=== PATIENT | female | born 1935 | race Caucasian/White ===

== ENCOUNTER 2016-12-27 13:11 | Inpatient (IN) | payer OTHER, BC ==
[2016-12-27] VITALS (19 sets, daily range): BP systolic 82–146; BP diastolic 35–119
[~2016-12-27] VITALS: Ht 165.1 cm; Wt 63.7 kg
--- NOTE | ~2016-12-27 | HC ---
[facility] [place] [address] CONSULTATION Name: HOLGER ARAIZA Room #: 428-P [facility] IN M.R.#: [id number] Admission: 12/27/16 Attend Phys: Romeo Drake MD Discharge: 01/05/17 Date of : 37 Report #: [id number] THIS REPORT FOR: //name// CC: Kurt Drake MD DATE OF SERVICE: 12/27/2016 DATE OF SERVICE: 12/27/2016. REFERRING PROVIDER: Dr. Romeo Drake. REASON FOR CONSULTATION: Hypoxemia and sepsis. CHIEF COMPLAINT: Altered mental status. HISTORY OF PRESENT ILLNESS: Our group was asked to see the patient in consultation while hospitalized at [facility] in the ICU, patient is having some dilemma, unable to give any further history. History taken from review of records, discussion with healthcare providers an 81-year-old woman with a history of respiratory failure, had recent tracheostomy removal and was brought to the Emergency Department for tachycardia, had adenosine and subsequently cardioversion for what appeared to be supraventricular tachycardia or atrial fibrillation because of hypotension. Urinalysis that suggested patient may be septic from urinary source. CT abdomen and pelvis revealed what appeared to be a right UPJ stone as well as possible right lower lobe pneumonia. ALLERGIES: Include PENICILLIN, SULFA, DOXYCYCLINE. PAST MEDICAL HISTORY: 1. History of respiratory therapy prior tracheostomy. 2. Hypertension. 3. Gastroesophageal reflux disease. 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 SOCIAL HISTORY: Unobtainable due to neurologic status. FAMILY HISTORY: Unobtainable due to neurologic status. REVIEW OF SYSTEMS: Unobtainable due to current neurologic status. The patient does note abdominal pain, significant. PHYSICAL EXAMINATION: VITAL SIGNS: Temperature 37.3, pulse 140 and regular, respiratory rate 30, blood pressure 116/43. [facility] [address] [place] [address] CONSULTATION Name: HOLGER ARAIZA Room #: 428-P [facility] IN [facility]#: [id number] Admission: 12/27/16 Attend Phys: Romeo Drake MD Discharge: 01/05/17 Date of : 37 Report #: [id number] GENERAL: This is a thin, cachectic, elderly woman, appears to be uncomfortable. ENT: Clear oropharynx. NECK: Supple, no lymphadenopathy. LUNGS: Diminished, particularly in the bases, right base crackles. No wheezes noted. CARDIOVASCULAR: Heart was tachycardic and regular. No murmurs noted. ABDOMEN: Distended with diminished bowel sounds and diffuse tenderness on exam. EXTREMITIES: Warm with 2+ pulses. No significant edema. LABORATORY DATA: White blood cell count 22,000, hemoglobin 13, hematocrit 37, platelet count of 80. Sodium is 138, potassium 4.5, chloride 103, bicarbonate 23, BUN 61, creatinine 2.2, glucose 88, a chest x-ray revealed relatively clear lung rodriguez. IMPRESSION: 1. Severe sepsis, likely due to abdominal source, probably a urinary tract infection. 2. Nephrolithiasis. 3. Acute renal insufficiency. 4. Acute hypoxemic respiratory failure, likely chronic. 5. Recent respiratory failure requiring tracheostomy, now removed. 6. Thrombocytopenia. 7. Supraventricular tachycardia/possible atrial fibrillation. SUGGESTIONS: 1. Urology consultation. 2. Continue ICU care with sepsis protocol. 3. Follow up chest radiograph. 4. Additional antibiotics per Infectious Disease service. Additional recommendations to follow. Thank you for requesting our suggestions. <ELECTRONICALLY SIGNED> By: William Benson MD 01/17/17 1453 10 1212 William Benson MD /nt
--- NOTE | ~2016-12-27 | S ---
[facility] [place] [address] SURGICAL PATH RPT PROCEDURE Name: HOLGER ARAIZA Room #: 240-P ADM IN M.R.#: [id number] Admission: 12/27/16 Date of : 37 Discharge: Report #: [id number] Path Case #: [id number] PATHOLOGY REPORT COLLECTION DATE: 12/29/2016 RECEIVED DATE: 12/29/2016 SUBMITTING PHYS: Dr. Dani Lima OTHER PHYS: Dr. Romeo Edmonds SPECIMEN(S) RECEIVED: A.Peripheral smear * * * * * * * * * * * * FINAL DIAGNOSIS: Peripheral blood smear: - Mild leukocytosis/neutrophilia with mild left shift, mild to moderate normocytic anemia and severe thrombocytopenia. (See comment). COMMENT: Overall the peripheral blood has mild leukocytosis/neutrophilia with a mild left shift, mild to moderate normocytic anemia and severe thrombocytopenia. The etiology of the findings is unclear based entirely on slide review. Potential causes of leukocytosis include infections, drug reactions and primary bone marrow disorders. It is likely a reactive condition to the patient's underlying medical condition. Potential causes of normocytic anemia include anemia of chronic disease, treated and/or compensated vitamin and mineral deficiencies, acute blood loss and dilatational. Potential causes of thrombocytopenia include immune and non-immune platelet destruction, drug and/or toxic exposures, dilutional and primary bone marrow disorders. Correlation with clinical history and additional laboratory data is recommended. PATHOLOGIST: Fiona Douglas M.D. REPORT ELECTRONICALLY SIGNED BY: Fiona Douglas M.D. DATE/TIME: 12/29/2016 22:17 * * * * * * * * * * * * MICROSCOPIC DESCRIPTION: CBC Data (12/28/16): WBC 22,700 /uL, RBC 3.14, hemoglobin 9.8 g/dL, hematocrit 29.4%, MCV 93.8 fL, MCH 3.2 pg, MCHC 33.2 g/dL, RDW 15.5%. Platelet count 28,000 /uL. Manual white blood cell differential: segs 68%, bands, 25%, lymphs 1%, monos 1%, metas 3%, and myelos 2%. [address] [address] SURGICAL PATH RPT PROCEDURE Name: HOLGER ARAIZA Room #: [address] [place] [address] IN ..#: [id number] Admission: 12/27/16 Date of : 37 Discharge: Report #: [id number] Path Case #: [id number] Peripheral Blood Smear: Cytomorphological examination of the Dickson's stained peripheral blood smear confirms the provided data. Red blood cells show mild to moderate normocytic anemia with mild anisopoikilocytosis. No significant poikilocytosis is identified. No schistocytes or microspherocytes are seen. White blood cells are mildly increased in number. They are predominantly segmented neutrophils and are without significant dyspoiesis. There is a mild left shift with rare myelocytes and metamyelocytes noted on scanning. No blasts or Gerson rods are seen. Rare lymphocytes are predominantly small, round, and mature appearing with condensed chromatin and scant cytoplasm with admixed large granular lymphocytes. On scanning, no markedly atypical lymphoid cells are seen. Monocytes are mature. Platelets are markedly decreased in number and mainly normal in morphology with rare larger platelets noted. CLINICAL HISTORY: 81-year-old woman with leukocytosis, anemia and thrombocytopenia. Morphologic review of the peripheral blood smear is requested by the patient's physician. INITIAL CPT CODE(S): A; [place] Professional services performed by [employer] at [facility] [address], [place] [address] Technical services performed by [employer] at [address] [place] [address], [address], [place] [address]. [facility] [address] [place] [address] PHONE: [phone] DIRECTOR: Wilbert Davis M.D. * * * END OF REPORT * * *
--- NOTE | ~2016-12-27 | HC ---
[facility] [place] [address] CONSULTATION Name: OHLGER ARAIZA Room #: 240-P ADM IN M.R.#: [id number] Admission: 12/27/16 Attend Phys: Romeo Drake MD Discharge: Date of : 36 Report #: [id number] THIS REPORT FOR: //name// CC: Kurt Benson MD REASON FOR CONSULTATION: Thrombocytopenia. HISTORY OF PRESENT ILLNESS: The patient is an 81-year-old female with history of chronic respiratory failure and tracheostomy who was at an outside facility was brought in because of mental status changes. On admission here, her platelets were 80,000. They were then 59, 40, and this morning 28. During the same time, her coags were unremarkable. Initially, her labs also included a BUN of 61 and a creatinine of 2.2. Liver functions are good, total bilirubin 0.6. ALT 25, albumin 2.1. Coags were normal with an INR of 1.2, APTT slightly up at 38.7, fibrinogen elevated at 442.5. White count initially 22.9, earlier last night 22.8, now supposedly 22.7, hemoglobin 12.5 on admission and after hydration 9.8, MCV 92.4 on admission, RDW at 15.5 currently, differential as noted had neutrophilia and also on today's morning lab, there is also thought to be a few metamyelocytes and myelocytes and nucleated red blood cells and a few large platelets, procalcitonin had been quite elevated at 103.3, heparin antibody is pending. UA did show protein, many wbc's and also 30 bacteria per high power field. Note, there appears to be gram-negative rods in both the blood and the urine, if I understand those correctly. Patient is thought to have a UTI causing her difficulties. The patient underwent a cystoscopy and attempted right stent placement and does have a stone in place, now has a right nephrostomy tube, which is percutaneously placed, has also been on pressor. PAST HISTORY: From the chart is notable for the recent kidney stone, also history of respiratory failure with the trach, hypertension, esophageal reflux disease, history of Guillain-[place]. SMOKING AND ALCOHOL HISTORY: Unchanged. SOCIAL HISTORY: Unobtainable, patient seems to nod the head that she may have been from the [place], but not clear. RADIOLOGIC STUDIES: This admit include a CT of the abdomen and pelvis, which did not reveal any unusual masses, did show the stone, no bleeding. Portable chest x-ray does show persistent right medial infiltrate or mass with follow up suggested. [facility] [address] [place] [address] CONSULTATION Name: GEORGIFAYHOLGER A Room #: 240-P ADM IN M.R.#: [id number] Admission: 12/27/16 Attend Phys: Romeo Drake MD Discharge: Date of : 36 Report #: [id number] CURRENT MEDICATIONS: Include hydrocodone p.r.n.; IV fluids; propofol; meropenem 500 mg q. 8; pressors, which I believe according to the nurse have now been held. The patient had been on vancomycin. PHYSICAL EXAMINATION: GENERAL: The patient is height is 5 feet 5 inches, which is 165.1 cm; weight 123 pounds or 56.1 kilograms. Blood pressure currently 111/60, O2 sat 98% on FiO2 of 30% on the vent I believe, respirations 18, pulse 88, and temperature 97.5. HEENT: Face is symmetrical. No obvious bleeding or dry blood on the nares or the oral mucosa or her IV or ventilatory tube. LYMPHATICS: No enlarged lymph nodes in the supraclavicular, cervical, axillary region. ABDOMEN: Does not appear to be tender. No definite masses. Bowel sounds decreased. EXTREMITIES: Without clubbing, cyanosis. There may be some edema. ASSESSMENT AND PLAN: 1. Thrombocytopenia, most likely due to overwhelming sepsis, would expect improvement, would transfuse if she believes or platelets go below 20,000. We will also check iron, B12, folate levels and ask for outside labs. We will also ask for peripheral smear, likely suspect the metamyelocytes or myelocytes are reactive in nature. 2. Gram-negative rods, sepsis, now off pressors. 3. Continue antibiotics per others. 4. Respiratory failure, ventilatory management. 5. Tachycardia, medicines per others. 6. Anemia. Most likely there is severe sepsis, additional fluid. We will follow. 7. Protein-calorie malnutrition, nutrition supplements as needed. We will follow with you. <ELECTRONICALLY SIGNED> By: Dani Lima MD 12/30/16 0625 0819 220 Dani Lima MD /nt
--- NOTE | ~2016-12-27 | O ---
[facility] [place] [address] [place] [address] OPERATIVE REPORT Name: HOLGER ARAIZA Room #: 237-P [facility] IN .R.#: [id number] Admission: 12/27/16 Attend Phys: Romeo Drake MD Discharge: Date of : 36 Report #: [id number] THIS REPORT FOR: //name// CC: Kurt Drake DATE OF SERVICE: 12/27/2016 PREOPERATIVE DIAGNOSIS: Right hydronephrosis with a 4 mm ureteropelvic junction stone and sepsis. POSTOPERATIVE DIAGNOSIS: Right hydronephrosis with a 4 mm ureteropelvic junction stone and sepsis. PROCEDURES PERFORMED: 1. Cystoscopy. 2. Right retrograde pyelogram. 3. Attempted right ureteral stent placement. ESTIMATED BLOOD LOSS: 0 mL. COMPLICATIONS: None. ANESTHESIA: General. 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 There was tortuosity to the ureter. Wire could not be placed past the stone. Multiple attempts were unsuccessful with 2 different types of wires, both a curved and straight wire were used. INDICATIONS FOR PROCEDURE: The patient is an 81-year-old female with acute onset of respiratory distress, back pain and was admitted to the ICU with sepsis. A CT scan revealed a 4 mm stone and hydronephrosis with stranding around the kidney. Due to her acute illness, she has elected to go the above named procedure. DESCRIPTION OF PROCEDURE: The patient was taken back to the operating room on 12/27/2016 after informed consent was obtained. All risks, benefits, and alternatives were explained. A signed consent released on the chart. She also had consent from her durable power of senior trial attorney. She was placed in a dorsal lithotomy position after being induced with anesthesia. She was prepped and draped in sterile fashion. Using a rigid 21-Uruguayan cystoscope, cystoscopy was performed. The bladder showed severe trabeculation and erythematous mucosa throughout. The right ureteral orifice was cannulated with a 5 Uruguayan open-ended access catheter. Retrograde pyelogram revealed a tortuous ureter and a malrotated kidney with hydronephrosis. Contrast was entering the kidney. [facility] [address] [place] [address] OPERATIVE REPORT Name: HOLGER ARAIZA Room #: 237-P [facility] IN ..#: [id number] Admission: 12/27/16 Attend Phys: Romeo Drake MD Discharge: Date of : 36 Report #: [id number] Multiple attempts with a wire to pass into the renal pelvis were unsuccessful. I attempted to move the retrograde catheter up to the level of the obstruction and see if I could maneuver the wire past the stone. This was also unsuccessful and resulted in extravasation of contrast with subsequent retrograde pyelogram. At this point, I elected to abort the procedure due to risk of ureteral injury and inability to place a wire past the stone. The Dodson catheter was placed into the bladder. She was taken to the recovery room, ventilated and in critical condition. DISPOSITION: The patient will have an interventional radiology consultation for attempting a right percutaneous nephrostomy tube placement. By: [phone] Melchor Edmonds MD /margaret
--- NOTE | ~2016-12-27 | EKG ---
[address] [place] [employer] [address] ELECTROCARDIOGRAM REPORT Name: HOLGER ARAIZA Room #: 237-[facility] IN M.R.#: [id number] Admission: 12/27/16 Attend Phys: Romeo Drake MD Discharge: Date of : 36 Report #: [id number] THIS REPORT FOR: //name// [facility] Test Date: 2016-12-27 Test Time: 17:46:07 Pat Name: HOLGER ARAIZA Department: Room: [facility] Gender: F Pet Caregiver: LAURA : 1935 Requested By: Marko Cool Order Number: [id number] MD: David Chang Measurements Intervals [place] Rate: 134 P: [place]: QRS: -19 QRSD: 167 T: 59 QT: 307 QTc: 459 Interpretive Statements Baseline artifact Sinus tachycardia Baseline wander in lead(s) V5 No previous ECG available for comparison Electronically Signed On 12-28-2016 8:54:13 CDT by David Chang [email or web address] <ELECTRONICALLY SIGNED> By: David Chang MD, [facility] 12/28/16 0854 1746 45 David Chang MD, FACC /EPI
--- NOTE | ~2016-12-27 | 2DMMODE ---
[facility] [place] [address] 2 D/M-MODE ECHOCARDIOGRAM Name: JOSE GHOLGER Gu Room #: 428-P [facility] IN [facility]#: [id number] Admission: 12/27/16 Attend Phys: Romeo Drake MD Discharge: Date of : 37 Date of Service: 01/03/17 1108 Report #: [id number] THIS REPORT FOR: //name// APPROVED REPORT Study performed: 01/03/2017 10:00:53 EXAM: Comprehensive 2D, Doppler, and color-flow Echocardiogram Patient Location: Bedside Room #: 428 Blood Pressure: 121/51 mmHg HR: 95 bpm Other Information Study Quality: Technically Limited Indications Pulmonary Hypertension Sepsis 2D Dimensions RVDd: 25.79 mm IVC: 16.00 mm Volumes Left Atrial Volume (Systole) Single Plane 4CH: 30.38 mL Single Plane 2CH: 33.35 mL LA ESV Index: 22.00 mL/m2 Aortic Valve AoV Peak Néstor.: 1.48 m/s AO Peak Gr.: 8.75 mmHg LVOT Max P.54 mmHg LVOT Max V: 1.37 m/s Mitral Valve E/A Ratio: 0.8 MV Decel. Time: 263.24 ms MV E Max Néstor.: 1.01 m/s MV A Néstor.: 1.25 m/s MV PHT: 76.34 ms IVRT: 96.89 ms [facility] [address] [place] [address] 2 D/M-MODE ECHOCARDIOGRAM Name: HOLGER ARAIZA Room #: 428-P [facility] IN .R.#: [id number] Admission: 12/27/16 Attend Phys: Romeo Drake MD Discharge: Date of : 37 Date of Service: 01/03/17 1108 Report #: [id number] Pulmonary Vein P Vein S: 87.5 m/s P Vein A: 32.38 m/s P Vein D: 68.4 m/s P Vein A Dur.: 86.5 msec Tricuspid Valve TR Peak Néstor.: 3.14 m/s RAP Estimate: 5.00 mmHg TR Peak Gr.: 39.33 mmHg Left Ventricle The left ventricle is normal size. There is normal LV segmental wall motion. There is normal left ventricular wall thickness. Left ventricular systolic function is normal. LVEF is >55%. Grade I - abnormal relaxation pattern. Right Ventricle The right ventricle is normal size. There is normal right ventricular wall thickness. The right ventricular systolic function is normal. Atria The left atrium size is normal. The right atrium size is normal. Aortic Valve Aortic valve is not well visualized. No aortic regurgitation is present. There is no aortic valvular vegetation. There is no aortic valvular stenosis. Mitral Valve The mitral valve is normal in structure. Trace mitral regurgitation. There is no evidence of mitral valve vegetations. No evidence of mitral valve stenosis. There is no evidence of mitral valve prolapse. Tricuspid Valve The tricuspid valve is normal in structure. There is no tricuspid valve stenosis. Mild tricuspid regurgitation. There is no tricuspid valve vegetations. Pulmonic Valve The pulmonary valve is normal in structure. There is no pulmonic valvular stenosis. The pulmonic valve is not well visualized. There is no pulmonic valve vegetations. Great Vessels The aortic root appears normal in size. [facility] [place] [place] [address] 2 D/M-MODE ECHOCARDIOGRAM Name: HOLGER ARAIZA Room #: 428-P [facility] IN M.R.#: [id number] Admission: 12/27/16 Attend Phys: Romeo Drake MD Discharge: Date of : 37 Date of Service: 01/03/171107 Report #: [id number] <Conclusion> The left ventricle is normal size. LVEF is >55%. Aortic valve is not well visualized. No aortic regurgitation is present. There is no aortic valvular stenosis. The mitral valve is normal in structure. Trace mitral regurgitation. The tricuspid valve is normal in structure. Mild tricuspid regurgitation. The pulmonary valve is normal in structure. <ELECTRONICALLY SIGNED> By: Howard Molina MD 01/03/17 1108 1108 1108 Howard Molina MD /INF
--- NOTE | ~2016-12-27 | HC ---
[facility] [place] [address] CONSULTATION Name: HOLGER ARAIZA Room #: 240-P [facility] IN M.R.#: [id number] Admission: 12/27/16 Attend Phys: Romeo Drake MD Discharge: Date of : 36 Report #: [id number] THIS REPORT FOR: //name// CC: Kurt Drake REASON FOR CONSULTATION: I was asked to evaluate concerning right pyelonephritis and septic shock. HISTORY OF PRESENT ILLNESS: The patient is an 81-year-old senior care resident with a history of respiratory failure, has had a previous trach, which has been removed. She has a PEG tube. She was hospitalized on 12/27/2016, with tachycardia and shortness of breath. The patient was confused. In the emergency room, she was hypotensive, her tachycardia did not convert with adenosine. She was cardioverted. It was noted that she had positive UA for wbc's and bacteria. White count was 22,000. She was transferred to the intensive care unit, given IV fluids, but was still in shock and Levophed was started. I ordered a CAT scan of her abdomen and pelvis, which showed a right ureteral obstruction due to a stone. She was taken to surgery, but was unable to pass a ureteral stent. She now has a percutaneous nephrostomy tube in place. Blood cultures are growing Gram-negative bacilli, urine culture, Gram-negative bacilli. ALLERGIES: DOXYCYCLINE, PENICILLIN, and SULFA. MEDICATIONS: As noted on her OCT. She was started on vancomycin and meropenem following her admission. PAST MEDICAL HISTORY: Respiratory failure, previous tracheostomy, now with a decannulated small fistulous tract still present. Hypertension, gastroesophageal reflux, and Guillain-[place] syndrome. FAMILY HISTORY: Noncontributory. SOCIAL HISTORY: Nonsmoker and senior care resident. REVIEW OF SYSTEMS: There has been no other cardiac issues. No GI complaints. She does have a PEG tube. PHYSICAL EXAMINATION: VITAL SIGNS: Currently afebrile, blood pressure 94/53, now off Levophed drip, she is on FIO2 of 50%. She was sedated. EXTREMITIES: Right upper extremity PICC with some bloody drainage on the dressing. Right nephrostomy tube in place with bloody urine. LUNGS: Clear anteriorly. HEART: Regular. ABDOMEN: Soft and appeared diffusely tender, no rebound or guarding identified. [facility] [address] [place] [address] CONSULTATION Name: HOLGER ARAIZA Room #: 240-P [facility] IN .R.#: [id number] Admission: 12/27/16 Attend Phys: Romeo Drake MD Discharge: Date of : 36 Report #: [id number] No appreciable masses. LABORATORY STUDIES: Sodium 141, potassium 4.2, bicarb of 16, creatinine 1.8 down from 2.2 yesterday, alkaline phosphatase 182, ALT 25, albumin of 2.1. Lactate yesterday was 3.6. INR 1.2. Hemoglobin 10.2, white count 2.8, down from 22.9 yesterday, platelet count 40,000 down from 80,000 yesterday, she has 31% bands, 7% metamyelocyte, procalcitonin 106. Urinalysis, many wbc's, many bacteria. ABG on 50% FiO2, pO2 of 216, pCO2 of 31, pH 7.3, lactate 3.1. Blood and urine cultures, Gram-negative bacilli. Chest x-ray, atelectasis in the right lower lobe. CT scan of the abdomen and pelvis with right ureteral stone and obstruction. IMPRESSION: An 81-year-old senior care resident with right pyelonephritis, complicating ureteral obstruction from the stone. Status post nephrostomy tube placement. She has septic shock, cytopenias with profound left shift, DIC, acute renal failure, respiratory failure, recommend continuing a Gram-negative coverage adjusted for renal failure. Full support of her multisystem failure. Follow platelet count closely. If bleeding becomes an issue, she will require transfusion. <ELECTRONICALLY SIGNED> By: Mendel Chilel MD 12/29/16 0923 0834 58 Mendel Chilel MD /nt
--- NOTE | ~2016-12-27 | EKG ---
[place] [address] [facility] [place] [address] ELECTROCARDIOGRAM REPORT Name: HOLGER ARAIZA Room #: 237- ADM IN M.R.#: [id number] Admission: 12/27/16 Attend Phys: Romeo Drake MD Discharge: Date of : 37 Report #: [id number] THIS REPORT FOR: //name// [facility] ED Test Date: 2016-12-27 Test Time: 13:18:49 Pat Name: HOLGER ARAIZA Department: Room: [facility] Gender: F Popcorn Attendant: ALLYSON : 1935 Requested By: Marko Cool Order Number: [id number] MD: David Chang Measurements Intervals [place] Rate: 162 P: 70 MT: 107 QRS: -89 QRSD: 81 T: 56 QT: 261 QTc: 429 Interpretive Statements Sinus tachycardia LAD, consider left anterior fascicular block Low voltage, extremity leads RSR' in V1 or V2, right VCD No previous ECG available for comparison Electronically Signed On 12-28-2016 8:50:13 CDT by David Chang [email or web address] <ELECTRONICALLY SIGNED> By: David Chang MD, [facility] 12/28/16 0850 1318 1318 David Chang MD, [facility] /EPI
[2016-12-27 13:32] LABS: HEMATOCRIT 37.4 % (37.0-47.0); HEMOGLOBIN 12.5 gm/dL (12.0-15.0); MCH 30.8 pg (26.0-34.0); MCHC 33.4 g/dL (28.0-37.0); MCV 92.4 fL (80.0-100.0); RBC 4.05 mil/uL (4.20-5.00); RDW 14.5 % (10.5-14.5); WBC 22.9 thou/uL (4.0-11.0)
[2016-12-27 13:34] LABS: MANUAL DIFF YES; PLATELET COUNT 80 thou/uL (150-400)
[2016-12-27 13:39] LABS: ANION GAP 12 mmol/L (7-16); BUN 61 mg/dL (7-18); CALCIUM 8.7 mg/dL (8.5-10.1); CHLORIDE 103 mmol/L (98-107); CO2 23 mmol/L (21-32); CREATININE 2.2 mg/dL (0.6-1.0); GLUCOSE 88 mg/dL (74-106); POTASSIUM 4.5 mmol/L (3.5-5.1); SODIUM 138 mmol/L (136-145)
[2016-12-27 13:46] LABS: ALBUMIN 2.1 g/dL (3.4-5.0); ALKALINE PHOSPHATASE 182 U/L (46-116); SGOT 31 U/L (15-37); SGPT 25 U/L (30-65); TOTAL BILIRUBIN 0.6 mg/dL (<0.1-1.0); TOTAL PROTEIN 5.8 g/dL (6.4-8.2); TROPONIN-I < 0.04 ng/mL (<0.04-0.07)
[2016-12-27 14:38] LABS: ABG SAMPLE TYPE ARTERIAL; BE(vivo) -3.9 mmol/L (-2 to +3); HCO3 18.7 mmol/L (22.0-26.0); LACTATE 3.11 mmol/L (0.5-2.0); O2(CT) 16.3 mL/dL (15.0-23.0); O2Hb 96.1 % (92.0-98.0); PCO2 27.1 mmHg (35.0-45.0); PO2 96.3 mmHg (80.0-100.0); pH 7.456 (7.360-7.450); sO2 97.8 % (92.0-98.0); tCO2 19.5 mmol/L (24.0-30.0)
[2016-12-27 14:39] LABS: STICK SITE L.RADIAL
[2016-12-27 14:42] LABS: ABG COMMENT NO COMPLICATIONS
[2016-12-27 15:06] LABS: ABSOLUTE NEUTROPHILS 20.6 thou/uL (1.4-8.2); ANISOCYTOSIS 1+; METAMYELOCYTES 8 %; POLYCHROMASIA OCCASIONAL; TOTAL CELL COUNT 100
[2016-12-27 15:08] LABS: URINE BILIRUBIN NEGATIVE (Negative); URINE BLOOD 1+ (Negative); URINE COLOR YELLOW; URINE GLUCOSE-RANDOM* NEGATIVE (Negative); URINE KETONES NEGATIVE (Negative); URINE LEUKOCYTES-REFLEX 3+ (Negative); URINE PROTEIN (DIPSTICK) 2+ (Negative); URINE SPECIFIC GRAVITY 1.025 (1.003-1.035); URINE UROBILINOGEN 0.2 E.U./dl (0.2-1.0)
[2016-12-27 15:16] LABS: CASTS None Seen /LPF (None Seen); SQUAMOUS 4-10 Moderate /LPF (0-3); URINE RBC 3-10 Few /HPF (0-2); URINE WBC-REFLEX >25 Many /HPF (0-5)
[2016-12-27 15:17] LABS: AMORPHOUS URATES Many /LPF (None Seen)
[2016-12-27 19:20] LABS: ABG SAMPLE TYPE VENOUS; BE(vivo) -4.1 mmol/L (-2 to +3); HCO3 20.2 mmol/L (22.0-26.0); O2(CT) 11.1 mL/dL (15.0-23.0); O2Hb VENOUS 67.5 (65.0-85.0); PCO2 VENOUS 34.1 mmHg (41.0-51.0); PO2 VENOUS 36.4 mmHg (35.0-45.0); sO2 VENOUS 69.7 % (65.0-85.0); tCO2 21.2 mmol/L (24.0-30.0)
[2016-12-27 19:21] LABS: LACTATE 3.69 mmol/L (0.5-2.0); STICK SITE LINE
[2016-12-27 19:25] LABS: APTT 38.7 Seconds (24.5-32.8); FIBRINOGEN 442.5 mg/dL (210-360); INR 1.2; PROTIME 12.2 Seconds (9.3-11.4)
[2016-12-27] MEDS ORDERED: ASPIR 8181 M1 PO (20:05)
[2016-12-27] MEDS ORDERED: ATIVAN0.5 MG PO (20:06)
[2016-12-27] MEDS ORDERED: REPLESTA50000 UNIT PO (20:07)
[2016-12-27] MEDS ORDERED: BISACODYL SUPP10 MG RECTAL (20:08)
[2016-12-27] MEDS ORDERED: PEPCID20 MG PO (20:08)
[2016-12-27] MEDS ORDERED: DUONEB 2.5-0.5 M3 ML INH (20:09)
[2016-12-27] MEDS ORDERED: LEXAPRO5 MG PO (20:09)
[2016-12-27] MEDS ORDERED: MAGNESIUM100 MG PO (20:10)
[2016-12-27] MEDS ORDERED: MIRALAX17 GM PO (20:10)
[2016-12-27] MEDS ORDERED: TRAZODONE HCL50 MG PO (20:11)
[2016-12-27] MEDS ORDERED: NORCO 5-325 TA1 EACH PO (20:11)
[2016-12-27 21:07] LABS: ABG SAMPLE TYPE ARTERIAL; BE(vivo) -4.1 mmol/L (-2 to +3); HCO3 19.9 mmol/L (22.0-26.0); O2(CT) 10.5 mL/dL (15.0-23.0); O2Hb VENOUS 70.6 (65.0-85.0); PCO2 VENOUS 32.6 mmHg (41.0-51.0); sO2 VENOUS 73.1 % (65.0-85.0); tCO2 20.9 mmol/L (24.0-30.0)
[2016-12-27 21:08] LABS: LACTATE 3.68 mmol/L (0.5-2.0); STICK SITE LINE
[2016-12-27 22:31] LABS: ABG SAMPLE TYPE ARTERIAL; BE(vivo) -4.9 mmol/L (-2 to +3); HCO3 19.3 mmol/L (22.0-26.0); O2(CT) 10.4 mL/dL (15.0-23.0); O2Hb VENOUS 69.4 (65.0-85.0); PCO2 VENOUS 32.7 mmHg (41.0-51.0); PO2 VENOUS 37.4 mmHg (35.0-45.0); sO2 VENOUS 71.3 % (65.0-85.0); tCO2 20.3 mmol/L (24.0-30.0)
[2016-12-27 22:32] LABS: LACTATE 4.45 mmol/L (0.5-2.0); STICK SITE LINE
[2016-12-27 23:57] LABS: ABG SAMPLE TYPE ARTERIAL; BE(vivo) -7.7 mmol/L (-2 to +3); HCO3 16.6 mmol/L (22.0-26.0); LACTATE 4.33 mmol/L (0.5-2.0); O2(CT) 14.9 mL/dL (15.0-23.0); O2Hb 96.2 % (92.0-98.0); PCO2 29.8 mmHg (35.0-45.0); PO2 105.5 mmHg (80.0-100.0); TIDAL VOLUME 450 ml; pH 7.363 (7.360-7.450); sO2 97.7 % (92.0-98.0); tCO2 17.5 mmol/L (24.0-30.0)
[2016-12-28] VITALS (47 sets, daily range): BP systolic 64–112; BP diastolic 40–78
[2016-12-28 02:37] LABS: CALCIUM 7.5 mg/dL (8.5-10.1); POTASSIUM 4.1 mmol/L (3.5-5.1)
[2016-12-28 03:14] LABS: METAMYELOCYTES 7 %; NUCLEATED RBCS 1 /100WBC; TOTAL CELL COUNT 100
[2016-12-28 03:15] LABS: MANUAL DIFF YES
[2016-12-28 03:17] LABS: HEMATOCRIT 31.2 % (37.0-47.0); HEMOGLOBIN 10.2 gm/dL (12.0-15.0); MCV 96.3 fL (80.0-100.0); RBC 3.24 mil/uL (4.20-5.00); WBC 2.8 thou/uL (4.0-11.0)
[2016-12-28 03:18] LABS: MCH 31.5 pg (26.0-34.0); MCHC 32.7 % (28.0-37.0); PLATELET COUNT 40 thou/uL (150-400); RDW 15.6 % (10.5-14.5)
[2016-12-28 03:21] LABS: ABSOLUTE NEUTROPHILS 2.4 thou/uL (1.4-8.2)
[2016-12-28 06:35] LABS: CALCIUM 7.2 mg/dL (8.5-10.1); CREATININE 1.8 mg/dL (0.6-1.0); POTASSIUM 4.2 mmol/L (3.5-5.1)
[2016-12-28 06:49] LABS: ABG SAMPLE TYPE ARTERIAL; BE(vivo) -9.3 mmol/L (-2 to +3); HCO3 15.7 mmol/L (22.0-26.0); LACTATE 3.17 mmol/L (0.5-2.0); O2(CT) 15.4 mL/dL (15.0-23.0); O2Hb 97.9 % (92.0-98.0); PCO2 31.4 mmHg (35.0-45.0); PO2 216.7 mmHg (80.0-100.0); TIDAL VOLUME 450 ml; pH 7.318 (7.360-7.450); sO2 99.4 % (92.0-98.0); tCO2 16.7 mmol/L (24.0-30.0)
[2016-12-28 15:31] LABS: RDW 15.5 % (10.5-14.5)
[2016-12-28 15:32] LABS: HEMATOCRIT 29.4 % (37.0-47.0); HEMOGLOBIN 9.8 gm/dL (12.0-15.0); MCH 31.2 pg (26.0-34.0); MCHC 33.2 g/dL (28.0-37.0); MCV 93.8 fL (80.0-100.0); RBC 3.14 mil/uL (4.20-5.00)
[2016-12-28 15:35] LABS: MANUAL DIFF YES
[2016-12-28 15:37] LABS: WBC 22.7 thou/uL (4.0-11.0)
[2016-12-28 15:38] LABS: PLATELET COUNT 28 thou/uL (150-400)
[2016-12-28 16:06] LABS: ABSOLUTE NEUTROPHILS 21.1 thou/uL (1.4-8.2); METAMYELOCYTES 3 %; MYELOCYTES 2 %; PLATELET ESTIMATE MARKEDLY DECREASED; TOTAL CELL COUNT 100
[2016-12-28 16:07] LABS: LARGE PLATELETS FEW
[2016-12-29] VITALS (12 sets, daily range): BP systolic 98–135; BP diastolic 42–64
[2016-12-29 08:57] LABS: HEMATOCRIT 30.3 % (37.0-47.0); MCH 31.1 pg (26.0-34.0); MCHC 33.1 g/dL (28.0-37.0); MCV 94.2 fL (80.0-100.0); RBC 3.22 mil/uL (4.20-5.00); RDW 15.4 % (10.5-14.5); WBC 18.1 thou/uL (4.0-11.0)
[2016-12-29 09:05] LABS: % SATURATION 15 % (20-39); IRON 22 ug/dL (50-170); TIBC 143 ug/dL (250-450); UIBC 121 ug/dL
[2016-12-29 09:07] LABS: CALCIUM 8.3 mg/dL (8.5-10.1); CREATININE 0.9 mg/dL (0.6-1.0); MAGNESIUM 1.4 mg/dL (1.8-2.4); POTASSIUM 3.3 mmol/L (3.5-5.1)
[2016-12-29 10:13] LABS: FOLIC ACID 13.2 ng/mL (8.6-58.9)
[2016-12-29 15:27] LABS: HEMOGLOBIN 10.2 gm/dL (12.0-15.0); MCH 30.9 pg (26.0-34.0); MCHC 32.9 g/dL (28.0-37.0); RBC 3.3 mil/uL (4.20-5.00); RDW 15.5 % (10.5-14.5)
[2016-12-29 21:02] LABS: ABG SAMPLE TYPE ARTERIAL; BE(vivo) -6.8 mmol/L (-2 to +3); HCO3 17.7 mmol/L (22.0-26.0); LACTATE 2.05 mmol/L (0.5-2.0); O2(CT) 15.5 mL/dL (15.0-23.0); O2Hb 97.4 % (92.0-98.0); PCO2 32.3 mmHg (35.0-45.0); PO2 134.9 mmHg (80.0-100.0); pH 7.357 (7.360-7.450); sO2 98.6 % (92.0-98.0); tCO2 18.7 mmol/L (24.0-30.0)
[2016-12-29 21:47] LABS: Pressure Support 8 cm H20; STICK SITE R.RADIAL
[2016-12-30] VITALS (53 sets, daily range): BP systolic 78–186; BP diastolic 48–166
[2016-12-30 00:08] LABS: MAGNESIUM 1.8 mg/dL (1.8-2.4); POTASSIUM 4.2 mmol/L (3.5-5.1)
[2016-12-30 04:12] LABS: ABG SAMPLE TYPE ARTERIAL; BE(vivo) -4.6 mmol/L (-2 to +3); HCO3 19.9 mmol/L (22.0-26.0); O2(CT) 16.3 mL/dL (15.0-23.0); O2Hb 96.9 % (92.0-98.0); PCO2 34.9 mmHg (35.0-45.0); PO2 114.2 mmHg (80.0-100.0); pH 7.374 (7.360-7.450); sO2 98.1 % (92.0-98.0)
[2016-12-30 04:13] LABS: STICK SITE L.BRACHIAL
[2016-12-30 05:18] LABS: HEMOGLOBIN 9.7 gm/dL (12.0-15.0); WBC 15.5 thou/uL (4.0-11.0)
[2016-12-30 05:21] LABS: HEMATOCRIT 29.6 % (37.0-47.0); MCH 30.9 pg (26.0-34.0); MCHC 32.8 g/dL (28.0-37.0); MCV 94.3 fL (80.0-100.0); RBC 3.14 mil/uL (4.20-5.00); RDW 15.6 % (10.5-14.5)
[2016-12-30 05:26] LABS: CALCIUM 7.7 mg/dL (8.5-10.1); CREATININE 0.6 mg/dL (0.6-1.0); MAGNESIUM 1.7 mg/dL (1.8-2.4)
[2016-12-30 16:00] LABS: ABG SAMPLE TYPE ARTERIAL; BE(vivo) -7.6 mmol/L (-2 to +3); HCO3 16.5 mmol/L (22.0-26.0); LACTATE 2.53 mmol/L (0.5-2.0); O2(CT) 15.6 mL/dL (15.0-23.0); O2Hb 97.2 % (92.0-98.0); PCO2 29.1 mmHg (35.0-45.0); PO2 138.4 mmHg (80.0-100.0); pH 7.371 (7.360-7.450); sO2 98.7 % (92.0-98.0); tCO2 17.4 mmol/L (24.0-30.0)
[2016-12-30 16:21] LABS: TIDAL VOLUME 450 ml
[2016-12-31] VITALS (14 sets, daily range): BP systolic 108–181; BP diastolic 62–154
[2016-12-31 05:50] LABS: HEMATOCRIT 31.4 % (37.0-47.0); HEMOGLOBIN 10.7 gm/dL (12.0-15.0); MCH 31.5 pg (26.0-34.0); MCHC 34.1 g/dL (28.0-37.0); MCV 92.5 fL (80.0-100.0); RBC 3.39 mil/uL (4.20-5.00); RDW 15.5 % (10.5-14.5); WBC 21.9 thou/uL (4.0-11.0)
[2016-12-31 05:59] LABS: CALCIUM 7.7 mg/dL (8.5-10.1); CREATININE 0.6 mg/dL (0.6-1.0); MAGNESIUM 1.4 mg/dL (1.8-2.4); POTASSIUM 3.8 mmol/L (3.5-5.1)
[2017-01-01 05:00] VITALS: BP 136/78
[2017-01-01 05:49] LABS: HEMATOCRIT 28.4 % (37.0-47.0); HEMOGLOBIN 9.6 gm/dL (12.0-15.0); MCH 31.3 pg (26.0-34.0); MCHC 33.9 g/dL (28.0-37.0); MCV 92.2 fL (80.0-100.0); RBC 3.08 mil/uL (4.20-5.00); RDW 15.1 % (10.5-14.5); WBC 23.7 thou/uL (4.0-11.0)
[2017-01-01 06:12] LABS: CALCIUM 7.8 mg/dL (8.5-10.1); CREATININE 0.5 mg/dL (0.6-1.0); MAGNESIUM 1.6 mg/dL (1.8-2.4); POTASSIUM 3.5 mmol/L (3.5-5.1)
[2017-01-01 08:04] VITALS: BP 143/62
[2017-01-01 16:35] VITALS: BP 141/53
[2017-01-01 20:00] VITALS: BP 105/63
[2017-01-02 04:30] VITALS: BP 128/59
[2017-01-02 05:14] LABS: HEMATOCRIT 24.9 % (37.0-47.0); HEMOGLOBIN 8.3 gm/dL (12.0-15.0); MCH 30.7 pg (26.0-34.0); MCHC 33.3 g/dL (28.0-37.0); MCV 92.3 fL (80.0-100.0); RBC 2.69 mil/uL (4.20-5.00); WBC 18.6 thou/uL (4.0-11.0)
[2017-01-02 05:30] LABS: CALCIUM 7.4 mg/dL (8.5-10.1); CREATININE 0.5 mg/dL (0.6-1.0); MAGNESIUM 1.5 mg/dL (1.8-2.4); POTASSIUM 3.5 mmol/L (3.5-5.1)
[2017-01-02 08:21] VITALS: BP 136/65
[2017-01-02 17:56] VITALS: BP 110/50
[2017-01-02 20:00] VITALS: BP 122/38
[2017-01-03 04:00] VITALS: BP 109/52
[2017-01-03 08:19] VITALS: BP 121/51
[2017-01-03 10:52] LABS: HEMATOCRIT 29.8 % (37.0-47.0); HEMOGLOBIN 10.1 gm/dL (12.0-15.0); MCH 30.7 pg (26.0-34.0); MCV 90.4 fL (80.0-100.0); RBC 3.3 mil/uL (4.20-5.00); WBC 18.6 thou/uL (4.0-11.0)
[2017-01-03 11:05] LABS: CALCIUM 7.5 mg/dL (8.5-10.1); CREATININE 0.5 mg/dL (0.6-1.0); POTASSIUM 3.3 mmol/L (3.5-5.1)
[2017-01-03 15:37] VITALS: BP 126/61
[2017-01-03 20:00] VITALS: BP 120/49
[2017-01-04 04:30] VITALS: BP 118/46
[2017-01-04 05:43] LABS: MCH 30.6 pg (26.0-34.0); MCHC 33.1 g/dL (28.0-37.0); MCV 92.5 fL (80.0-100.0); RBC 2.59 mil/uL (4.20-5.00); RDW 14.8 % (10.5-14.5)
[2017-01-04 05:50] LABS: HEMOGLOBIN 7.9 gm/dL (12.0-15.0)
[2017-01-04 05:59] LABS: CALCIUM 7.4 mg/dL (8.5-10.1); CREATININE 0.5 mg/dL (0.6-1.0); MAGNESIUM 1.8 mg/dL (1.8-2.4); POTASSIUM 3.3 mmol/L (3.5-5.1)
[2017-01-04 07:25] VITALS: BP 124/52
[2017-01-04 15:23] VITALS: BP 124/56
[2017-01-04 22:00] VITALS: BP 126/68
[2017-01-05 04:00] VITALS: BP 117/57
[2017-01-05 05:51] LABS: HEMATOCRIT 24.2 % (37.0-47.0); HEMOGLOBIN 7.9 gm/dL (12.0-15.0); MCH 30.4 pg (26.0-34.0); MCHC 32.8 g/dL (28.0-37.0); MCV 92.8 fL (80.0-100.0); RBC 2.61 mil/uL (4.20-5.00); RDW 14.8 % (10.5-14.5)
[2017-01-05 06:08] LABS: CALCIUM 7.8 mg/dL (8.5-10.1); CREATININE 0.4 mg/dL (0.6-1.0); MAGNESIUM 1.6 mg/dL (1.8-2.4); POTASSIUM 4.2 mmol/L (3.5-5.1)
[2017-01-05 07:06] VITALS: BP 125/69
[2017-01-05] MEDS ORDERED: CEFDINIR300 MG PO (12:15)
== END 2017-01-05 14:02 | DRG 871 ==
LOC: ER 13:11 → ICU 15:29 → EROBS 15:29 → ICU 16:54 → 4E 12-31 11:17
PROVIDERS: Hospitalist; Internal Medicine; Internal Medicine Hematology & Oncology; Internal Medicine Pulmonary Disease; Nurse Practitioner Acute Care; Physician Assistant; Radiology Vascular & Interventional Radiology
PROC: BT1D1ZZ Fluoroscopy of Right Kidney, Ureter and Bladder using Low Osmolar Contrast (ICD-10-PCS; principal; 2016-12-27)
PROC: 0T9030Z Drainage of Right Kidney with Drainage Device, Percutaneous Approach (ICD-10-PCS; 2016-12-28)
PROC: 5A1945Z Respiratory Ventilation, 24-96 Consecutive Hours (ICD-10-PCS; 2016-12-28)
PROC: 30233N1 Transfusion of Nonautologous Red Blood Cells into Peripheral Vein, Percutaneous Approach (ICD-10-PCS; 2016-12-30)
PROC: B548ZZA Ultrasonography of Superior Vena Cava, Guidance (ICD-10-PCS; 2016-12-30)
PROC: 02HV33Z Insertion of Infusion Device into Superior Vena Cava, Percutaneous Approach (ICD-10-PCS; 2016-12-30)
DX: A41.9 Sepsis, unspecified organism (principal); R65.21 Severe sepsis with septic shock; E43 Unspecified severe protein-calorie malnutrition; J96.21 Acute and chronic respiratory failure with hypoxia; N39.0 Urinary tract infection, site not specified; N17.9 Acute kidney failure, unspecified; G61.0 Guillain-Barre syndrome; E87.0 Hyperosmolality and hypernatremia; I47.1 Supraventricular tachycardia; N13.0 Hydronephrosis with ureteropelvic junction obstruction; K21.9 Gastro-esophageal reflux disease without esophagitis; B96.20 Unspecified Escherichia coli [E. coli] as the cause of diseases classified elsewhere; N20.0 Calculus of kidney; D69.6 Thrombocytopenia, unspecified; D64.9 Anemia, unspecified; I12.9 Hypertensive chronic kidney disease with stage 1 through stage 4 chronic kidney disease, or unspecified chronic kidney disease; N18.9 Chronic kidney disease, unspecified; Z68.23 Body mass index [BMI] 23.0-23.9, adult; Z79.82 Long term (current) use of aspirin; Z79.899 Other long term (current) drug therapy; Z93.0 Tracheostomy status; Z93.6 Other artificial openings of urinary tract status; Z88.1 Allergy status to other antibiotic agents; Z88.0 Allergy status to penicillin; Z88.2 Allergy status to sulfonamides
CPT/HCPCS: 10078; 10183; 27000; 50101; 51620; 56674; 56815; 62110; 62900; 85076

== ENCOUNTER → 2017-03-08 | Outpatient (CLI) | payer OTHER, BC ==
[~2017-03-08] VITALS: Ht 165.1 cm; Wt 48.5 kg
[~2017-03-08] MED LIST: ASPIR 8181 M1 PO; ATIVAN0.5 MG PO; BISACODYL SUPP10 MG RECTAL; CEFDINIR300 MG PO; DUONEB 2.5-0.5 M3 ML INH; LEXAPRO5 MG PO; MAGNESIUM100 MG PO; MIRALAX17 GM PO; NORCO 5-325 TA1 EACH PO; PEPCID20 MG PO; REPLESTA50000 UNIT PO; TRAZODONE HCL50 MG PO
[2017-03-08 11:01] LABS: HEMATOCRIT 37.4 % (37.0-47.0); HEMOGLOBIN 12.4 gm/dL (12.0-15.0); MCHC 33.2 g/dL (28.0-37.0); MCV 93.5 fL (80.0-100.0); RDW 14.9 % (10.5-14.5); WBC 8.8 thou/uL (4.0-11.0)
[2017-03-08 11:02] VITALS: BP 139/81
[2017-03-08 11:11] LABS: CALCIUM 9.8 mg/dL (8.5-10.1); CREATININE 0.6 mg/dL (0.6-1.0); POTASSIUM 4.3 mmol/L (3.5-5.1)
[2017-03-08 11:16] LABS: PROTIME 10.1 Seconds (9.3-11.4)
== END | disposition home or self-care (01) ==
LOC: SPEC 08:16
PROVIDERS: Radiology Vascular & Interventional Radiology
DX: N20.1 Calculus of ureter (principal); I10 Essential (primary) hypertension; K21.9 Gastro-esophageal reflux disease without esophagitis; F41.8 Other specified anxiety disorders; Z88.0 Allergy status to penicillin; Z88.2 Allergy status to sulfonamides; Z88.8 Allergy status to other drugs, medicaments and biological substances; Z98.890 Other specified postprocedural states; Z79.899 Other long term (current) drug therapy; Z79.82 Long term (current) use of aspirin

== ENCOUNTER → 2017-06-08 | Outpatient (CLI) | payer OTHER, BC ==
[~2017-06-08] MED LIST changes: +MACROBID 100 M100 M2 PO; +MAGOX 400400 MG PO
== END | disposition home or self-care (01) ==
LOC: SPEC 08:04
DX: N99.522 Malfunction of incontinent external stoma of urinary tract (principal); K21.9 Gastro-esophageal reflux disease without esophagitis; I10 Essential (primary) hypertension; F41.9 Anxiety disorder, unspecified